=== PATIENT | male | born 1950 | race Hispanic/Latino ===

== ENCOUNTER 2023-02-19 11:37 | Emergency (ER) | payer OTHER ==
[~2023-02-19] VITALS: Ht 160 cm; Wt 81.6 kg
[2023-02-19] MEDS ORDERED: ACET-2893 PO (13:52)
[2023-02-19 14:12] VITALS: BP 156/89; PULSE 68; RESP 16; O2SAT 98
== END 2023-02-19 14:18 | disposition home or self-care (01) ==
LOC: EDH 11:37
DX: S46.811A Strain of other muscles, fascia and tendons at shoulder and upper arm level, right arm, initial encounter (principal); S56.416A Strain of extensor muscle, fascia and tendon of left ring finger at forearm level, initial encounter; I10 Essential (primary) hypertension; Z90.49 Acquired absence of other specified parts of digestive tract; Z98.890 Other specified postprocedural states; W01.0XXA Fall on same level from slipping, tripping and stumbling without subsequent striking against object, initial encounter; Y93.89 Activity, other specified; Y92.89 Other specified places as the place of occurrence of the external cause; Y99.8 Other external cause status
CPT/HCPCS: 73030; 73140